=== PATIENT | female | born 1960 | race Caucasian/White ===

== ENCOUNTER 2016-04-20 11:36 | Emergency (ER) | payer BC ==
[2016-04-20] MEDS ORDERED: MOTRIN 600 MG PO ONE (11:51)
--- NOTE | 2016-04-20 11:54 | ERPHSYRPT ---
- History of Present Illness Time Seen by Provider: 04/20/16 11:49 Source: patient Physician History: CC: ankle injury Hx: 55 y/o patient of Dr Gorman with hx of GERD twisted right ankle with inversion injury last night taking out trash. Pain and swelling persist in the right ankle. No other injuries. Severity of Pain-Max: moderate Severity of Pain-Current: moderate Lower Extremities Pain: ankle: right Allergies/Adverse Reactions: codeine Allergy (Verified 04/20/16 11:49) Home Medications: Omeprazole [Prilosec] 40 mg PO DAILY 04/20/16 [History] - Review of Systems Constitutional: No Symptoms Musculoskeletal: Joint Pain (right ankle), No Back Pain, No Neck Pain Neurological: No Focal Weakness, No Parasthesia - Past Medical History Pertinent Past Medical History: Yes (GERD) - Social History Patient Lives Alone: No - Nursing Vital Signs Nursing Vital Signs: Initial Vital Signs Temperature 98.0 F Temperature Source Oral Pulse Rate 64 Respiratory Rate 18 Blood Pressure [Right Arm] 170/76 Pain Intensity 5 - Physical Exam General Appearance: alert Eyes, Ears, Nose, Throat Exam: moist mucous membranes Neck Exam: supple Cardiovascular/Respiratory Exam: regular rate/rhythm Neuro/Tendon Exam: normal sensation, normal motor functions Mental Status Exam: alert, oriented x 3, cooperative Skin Exam: warm, dry Comments: right ankle has tenderness and swelling at lateral malleolus. No foot or fibular head tenderness. - Course Nursing assessment & vital signs reviewed: Yes - Radiology Exams right ankle X-ray Interpretation: Discussed w/ radiologist, No Fracture, Other (STS) Ordered Tests: Active Orders 24 hr Category Date Time Status Cold Application STAT Care 04/20/16 11:51 Active ANKLE (3 VIEWS) Stat Exams 04/20/16 11:51 Completed Medication Summary Discontinued Medications Generic Name Dose Route Start Last Admin Trade Name Freq PRN Reason Stop Dose Admin Ibuprofen 600 mg 04/20/16 11:51 Motrin 600 Mg PO 04/20/16 11:52 STAT ONE - Progress Progress Note: 04/20/16 12:14 Sprain instructions given. Counseled pt/family regarding: diagnosis, need for follow-up, rad results - Departure Time of Disposition: 12:14 Departure Disposition: Home Clinical Impression: Right ankle sprain Qualifiers: Encounter type: initial encounter Involved ligament of ankle: unspecified ligament Qualified Code(s): S93.401A - Sprain of unspecified ligament of right ankle, initial encounter Condition: Stable Critical Care Time: No Referrals: VIC GORMAN [NON-STAFF PHY W/O PRIVILEGES] - Instructions: Ankle Sprain Additional Instructions: SPRAINS/STRAINS/CONTUSIONS 1. Rest the affected area as much as possible for the next few days. 2. Apply ice to the affected area for 20-30 minutes at a time, several times a day. 3. If you receive an elastic wrap, wear it only while awake for comfort and support. Re-wrap the elastic wrap if it feels too tight or too loose. 4. If swelling is present, elevate the affected part above the level of the heart for at least 2 to 3 days. 5. Use splints, slings, or crutches as instructed. 6. Watch for severe swelling, coldness, numbness, and discoloration of the fingers and toes. See your family physician or return to the emergency department if any of these are noted. Ramesh/air cast. Rx ibuprofen. Prescriptions: Ibuprofen 600 mg PO Q6H PRN PRN #24 tablet PRN Reason: Pain
--- NOTE | 2016-04-20 12:09 | XRAY ---
Indication: Pain following twisting injury. Comparison: None 3 views of the right ankle demonstrates anterior lateral soft tissue swelling without acute fracture or dislocation. Incidental spurring of the lateral malleolus, plantar calcaneus, and talonavicular articulation. Lower leg soft tissue calcified granulomas.
[2016-04-20] MEDS ORDERED: MOTRIN 600 MG ONE (12:15)
[2016-04-20 13:59] VITALS: BP 122/66; PULSE 70; O2SAT 96
== END 2016-04-20 12:40 | disposition home or self-care (01) ==
LOC: ED 11:36
DX: S93.401A Sprain of unspecified ligament of right ankle, initial encounter (principal); X50.0XXA Overexertion from strenuous movement or load, initial encounter
CPT/HCPCS: 73610; 99283